=== PATIENT | male | born 1980 | race Caucasian/White ===

== ENCOUNTER 2024-11-22 17:55 | Emergency (ER) | payer SELFPAY ==
[~2024-11-22] VITALS: Ht 172.7 cm; Wt 77.0 kg
[2024-11-22 18:00] VITALS: TEMP 36.6; O2SAT 96
[2024-11-22] MEDS ORDERED: ACETAMINOPHEN 325MG TABLET PO ONE (19:00)
[2024-11-22] MEDS ORDERED: IBUP-2029 MT (20:02)
[2024-11-22 20:19] VITALS: TEMP 97.9
[2024-11-22] MEDS: ACETAMINOPHEN 325MG TABLET PO SCH (20:19)
[2024-11-22] MEDS ORDERED: OXYM30SP26 BOTHNSTRLS (20:20)
[2024-11-23 00:53] VITALS: BP 125/79; PULSE 68; RESP 20; O2SAT 98
== END 2024-11-23 00:53 | disposition home or self-care (01) ==
LOC: ER 17:55
DX: S02.2XXA Fracture of nasal bones, initial encounter for closed fracture (principal); M25.511 Pain in right shoulder; Y04.0XXA Assault by unarmed brawl or fight, initial encounter; Y93.89 Activity, other specified; Y92.89 Other specified places as the place of occurrence of the external cause; Y99.8 Other external cause status
CPT/HCPCS: 70486; 71101; 73030; 99284